=== PATIENT | female | born 1955 | race Caucasian/White ===

== ENCOUNTER 2016-11-12 07:11 | Emergency (ER) | payer OTHER ==
[~2016-11-12] VITALS: Wt 68.0 kg
[~2016-11-12 07:11] MED LIST: ARIP5TAB7 PO; BUPR100T6 PO; CEPH-443 PO; IBUP-1542 PO; LORA-401 PO; MAG355OR14 PO; ONDA4TAB8 PO; TRAZ100T15 PO; ZOLP5TAB PO
[2016-11-12 07:16] VITALS: Wt 68.0 kg
--- NOTE | 2016-11-12 07:44 | ERD ---
ER Documentation Chief Complaint Date/Time DATE: 11/12/16 TIME: 07:42 Chief Complaint fall 3 days ago . pain to lower back. no neuro deficit HPI 61 year old female tripped and fell 3 days ago and fell onto her right side and is now coplaining of right rib pain. Pain is localized, worse with movement, and better at rest, described at rest. No fever, cough. She denies abdominal pain. ROS All systems reviewed and are negative except as per history of present illness. Medications Home Meds Active Scripts Tramadol HCl (Tramadol HCl) 50 Mg Tablet, 50 MG PO Q4 Y for PAIN, #15 TAB Prov:TAWANNA PIERRE PA-C 11/12/16 Ibuprofen* (Ibuprofen*) 600 Mg Tablet, 600 MG PO Q8 for PAIN AND/OR INFLAMMATION , #30 TAB Prov:MEGHAN GROVER MD 07/30/16 Ondansetron Hcl* (Zofran*) 4 Mg Tablet, 4 MG PO Q8H Y for NAUSEA AND/OR VOMITING , #30 TAB Prov:MEGHAN GROVER MD 07/30/16 Mag Hydrox/Al Hydrox/Simeth (Maalox Advanced Suspension) 355 Ml Oral.susp, 2 TSP PO TID, #24 OZ Prov:MEGHAN GROVER MD 07/30/16 Cephalexin* (Keflex*) 500 Mg Capsule, 500 MG PO TID for 5 Days, CAP Prov:MEGHAN GROVER MD 07/30/16 Reported Medications Zolpidem Tartrate* (Ambien*) 5 Mg Tablet, 5 MG PO HS Y for INSOMNIA, TAB 08/06/15 Trazodone Hcl* (Trazodone Hcl*) 100 Mg Tablet, 100 MG PO HS 10/23/11 Lorazepam* (Ativan*) 1 Mg Tablet, 1 MG PO BID 10/01/11 Aripiprazole* (Abilify*) 5 Mg Tab, 2.5 MG PO DAILY 10/01/11 Bupropion Hcl* (Wellbutrin*) 100 Mg Tablet, 200 MG PO DAILY 10/01/11 Allergies Allergies: Coded Allergies: No Known Allergy (Unverified , 11/12/16) PMhx/Soc History of Surgery: Yes (KIDNEY STONES, CHOLECYSTECTOMY) Anesthesia Reaction: No Hx Neurological Disorder: No Hx Respiratory Disorders: No Hx Cardiac Disorders: Yes (ANGINA) Hx Psychiatric Problems: No Hx Miscellaneous Medical Probl: Yes (diverticulitis) Hx Alcohol Use: No Hx Substance Use: No Hx Tobacco Use: No Smoking Status: Never smoker Physical Exam Vitals Vital Signs Date Time Temp Pulse Resp B/P Pulse Ox O2 Delivery O2 Flow Rate FiO2 11/12/16 08:39 98.4 73 19 132/77 100 Room Air 11/12/16 07:16 97.9 58 21 111/67 97 Physical Exam General: Well-developed, well-nourished. The patient appears in no acute distress. HEENT: Head is normocephalic, atraumatic. No scleral icterus. Neck: Supple. Nontender. Lungs: Clear to auscultation. Normal air movement. Chest: tender of right lower #7, no crepitus Heart: Regular rate and rhythm. S1 and S2 are normal. No murmurs, gallops, or rubs. Abdomen: Soft, nontender, nondistended. Bowel sounds are normoactive. No RUQ tenderness Extremities: No clubbing or cyanosis. Normal pulses. Moving extremities x 4. No weakness. Neurologic: Alert and oriented 3. No focal deficits. Skin: Normal turgor. No rash or lesions. Results 24 hrs Current Medications Medications (Trade) Dose Ordered Sig/Jackie Route PRN Reason Start Time Stop Time Status Last Admin Dose Admin Tramadol HCl (Ultram) 50 mg ONCE ONCE PO 11/12/16 08:00 11/12/16 08:01 DC 11/12/16 07:50 PROCEDURE: XR Chest. CLINICAL INDICATION: Fall. Right rib pain. TECHNIQUE: Single frontal chest x-ray. COMPARISON: None. FINDINGS: The lungs are clear of acute infiltrates, edema, effusions, or masses.. The cardiomediastinal silhouette is unremarkable. The osseous structures are intact. IMPRESSION: No acute cardiopulmonary disease. RPTAT: GG .Kevin Mcclendon MD, Date Time Electronically viewed and signed by .Kevin Mcclendon MD, on 11/12/2016 08:22 .L/ Procedures/MDM ER COURSE: Patient was given tramadol for pain. MDM: 60-year-old female presents with a traumatic fall, complaining of right rib pain. The patient has tenderness over the rib, consistent with a contusion. There is no evidence of a pneumothorax, hemopneumothorax, no evidence of shortness of breath and no signs of acute hepatobiliary process. She was asking for Grant at this time, she states that her primary care physician usually writes this and I have asked her to follow-up with her PCP given that narcotic prescription should be written by one provider. I did offer her tramadol as a prescription but the patient refused. Departure Diagnosis: Primary Impression: Fall Additional Impression: Contusion of rib on right side Condition: TAWANNA Sánchez PA-C Nov 12, 2016 07:44
[2016-11-12] MEDS ORDERED: traMADol 50 MG TAB PO ONE (08:00)
--- NOTE | 2016-11-12 08:23 | RADRPT ---
PROCEDURE: XR Chest. CLINICAL INDICATION: Fall. Right rib pain. TECHNIQUE: Single frontal chest x-ray. COMPARISON: None. FINDINGS: The lungs are clear of acute infiltrates, edema, effusions, or masses.. The cardiomediastinal silho uette is unremarkable. The osseous structures are intact. IMPRESSION: No acute cardiopulmonary disease. RPTAT: GG .Kevin Mcclendon MD, MD Date Time Electronically viewed and signed by .Kevin Mcclendon MD, MD on 11/12/2016 08:22 .L/
[2016-11-12] MEDS ORDERED: TRAM50TA2 PO (08:27)
[2016-11-12 08:39] VITALS: BP 132/77; PULSE 73; RESP 19; TEMP 98.4
== END 2016-11-12 08:40 | disposition home or self-care (01) ==
LOC: FTE 07:11
DX: S20.211A Contusion of right front wall of thorax, initial encounter (principal); W01.0XXA Fall on same level from slipping, tripping and stumbling without subsequent striking against object, initial encounter; Y92.9 Unspecified place or not applicable
CPT/HCPCS: 71010; Z7502; Z7610

== ENCOUNTER 2016-11-28 03:43 | Emergency (ER) | payer OTHER ==
[~2016-11-28] VITALS: Ht 152.4 cm; Wt 71.6 kg
[~2016-11-28 03:43] MED LIST changes: +TRAM50TA2 PO
[2016-11-28 03:48] VITALS: Ht 152.4 cm; Wt 71.6 kg
--- NOTE | 2016-11-28 04:34 | ERA ---
ER Documentation Chief Complaint Date/Time DATE: 11/28/16 TIME: 04:33 Chief Complaint lower abd pain since yeterday and worsening HPI The patient is a 61-year-old female, presenting to the ER because of left lower abdominal pain that began about 8 PM last night, 04/29, no aggravating or relieving factor. She has similar symptoms previously, denies fever, chills, neck pain, chest pain, dyspnea, dysuria, diarrhea, constipation. She does not smoke, drink Past medical history: History of kidney stone, depression Past surgical history: Cholecystectomy, appendectomy ROS All systems reviewed and are negative except as per history of present illness. Medications Home Meds Active Scripts Tramadol HCl (Tramadol HCl) 50 Mg Tablet, 50 MG PO Q6 Y for PAIN, #20 TAB Prov:ALEXEI ALMONTE MD 11/28/16 Tramadol HCl (Tramadol HCl) 50 Mg Tablet, 50 MG PO Q4 Y for PAIN, #15 TAB Prov:TAWANNA PIERRE PA-C 11/12/16 Ibuprofen* (Ibuprofen*) 600 Mg Tablet, 600 MG PO Q8 for PAIN AND/OR INFLAMMATION , #30 TAB Prov:MEGHAN GROVER MD 07/30/16 Ondansetron Hcl* (Zofran*) 4 Mg Tablet, 4 MG PO Q8H Y for NAUSEA AND/OR VOMITING , #30 TAB Prov:MEGHAN GROVER MD 07/30/16 Mag Hydrox/Al Hydrox/Simeth (Maalox Advanced Suspension) 355 Ml Oral.susp, 2 TSP PO TID, #24 OZ Prov:MEGHAN GROVER MD 07/30/16 Cephalexin* (Keflex*) 500 Mg Capsule, 500 MG PO TID for 5 Days, CAP Prov:MEGHAN GROVER MD 07/30/16 Reported Medications Zolpidem Tartrate* (Ambien*) 5 Mg Tablet, 5 MG PO HS Y for INSOMNIA, TAB 08/06/15 Trazodone Hcl* (Trazodone Hcl*) 100 Mg Tablet, 100 MG PO HS 10/23/11 Lorazepam* (Ativan*) 1 Mg Tablet, 1 MG PO BID 10/01/11 Aripiprazole* (Abilify*) 5 Mg Tab, 2.5 MG PO DAILY 10/01/11 Bupropion Hcl* (Wellbutrin*) 100 Mg Tablet, 200 MG PO DAILY 10/01/11 Allergies Allergies: Coded Allergies: No Known Allergy (Unverified , 11/12/16) PMhx/Soc History of Surgery: Yes (KIDNEY STONES, CHOLECYSTECTOMY) Anesthesia Reaction: No Hx Neurological Disorder: No Hx Respiratory Disorders: No Hx Cardiac Disorders: Yes (ANGINA) Hx Psychiatric Problems: No Hx Miscellaneous Medical Probl: Yes (diverticulitis) Hx Alcohol Use: No Hx Substance Use: No Hx Tobacco Use: No Physical Exam Vitals Vital Signs Date Time Temp Pulse Resp B/P Pulse Ox O2 Delivery O2 Flow Rate FiO2 11/28/16 03:48 97.7 61 20 136/71 97 Physical Exam Const: No acute distress. Head: Atraumatic. Eyes: Normal Conjunctiva. ENT: Normal External Ears, Nose and Mouth. Neck: Full range of motion. No meningismus. Resp: Clear to auscultation bilaterally. Cardio: Regular rate and rhythm, no murmurs. Abd: Soft, non distended, normal bowel sounds, mild left lower quadrant tenderness, no rigidity, rebound, CVA tenderness. Skin: No petechiae or rashes. Back: No midline or flank tenderness. Ext: No cyanosis, or edema. Neur: Awake and alert. No focal deficit Psych: Normal Mood and Affect. Results 24 hrs Laboratory Tests Test 11/28/16 05:32 Bedside Urine Blood 2+ Bedside Urine Glucose (UA) Negative Bedside Urine Ketones (LAB) Negative Bedside Urine Leukocyte Esterase (L Negative Bedside Urine Nitrite (LAB) Negative Bedside Urine Protein (LAB) Negative Bedside Urine pH (LAB) 7.0 Current Medications Medications (Trade) Dose Ordered Sig/Jackie Route PRN Reason Start Time Stop Time Status Last Admin Dose Admin Morphine Sulfate (morphine) 2 mg ONCE STAT IV 11/28/16 04:39 11/28/16 04:40 Cancel Ondansetron HCl (Zofran Inj) 4 mg ONCE STAT IV 11/28/16 04:39 11/28/16 04:40 Cancel Acetaminophen/ Hydrocodone Bitart ([place] (10/325)) 1 tab ONCE ONCE PO 11/28/16 06:00 11/28/16 06:01 DC Ondansetron HCl (Zofran Odt) 4 mg ONCE STAT ODT 11/28/16 05:42 11/28/16 05:43 DC 11/28/16 05:54 Procedures/MDM MEDICAL MAKING DECISION: The patient is a 60-year-old female, presenting with acute abdominal pain of unclear etiology, most likely due to diverticulosis. She was treated with [place] for pain and Zofran ODT for nausea with good response The differential diagnoses considered include but are not limited to cholelithiasis, cholecystitis, cystitis, pancreatitis, hepatitis, gastritis, peptic ulcer disease, gastric ulcer, appendicitis, diverticulitis, cholangitis, choledocholithiasis, partial small bowel obstruction. Departure Diagnosis: Primary Impression: Abdominal pain Additional Impression: Diverticulosis Condition: Good Comments She was discharged with [facility] I discussed the findings with the patient. I advised the patient to follow-up with the primary physician in about 1-2 days, sooner if needed and return if any concern. ALEXEI ALMONTE MD Nov 28, 2016 04:34
[2016-11-28] MEDS ORDERED: ONDANSETRON 4 MG INJ IV STA (04:39)
[2016-11-28] MEDS ORDERED: morphine 2 MG INJ IV STA (04:39)
--- NOTE | 2016-11-28 05:14 | RADRPT ---
PROCEDURE: CT ABDOMEN/PELVIS WITHOUT CONTRAST CLINICAL INDICATION: 61-year-old female with abdominal pain. TECHNIQUE: The study was performed utilizing a GE [employer] VCT 64-slice CT scanner. Direct axia l sections were obtained through the abdomen and pelvis without the use of intravenous contrast mate rial. Sagittal and coronal reformations were obtained. Automated exposure control and iterative sushma nstruction techniques were utilized for this examination. The [facility]. CTD/vol = 16.2 mGy; Total Exam DLP = 836.5 mGy-cm. COMPARISON: CT abdomen/pelvis August 06, 2015. FINDINGS: The lung bases are unremarkable. There is no evidence for significant pleural effusion. The liver has a normal size and contour. There is diffuse decreased density throughout the liver consistent w ith fatty infiltration without focal areas of abnormal density. No intrahepatic nor extrahepatic joyce iary ductal dilatation is seen. Surgical clips are seen within the gallbladder fossa from prior chol ecystectomy. The pancreas is without areas of abnormal attenuation. The spleen is identified and mirza s a normal size without abnormal density. The adrenal glands are unremarkable. There are innumerable bilateral small nonobstructing renal calculi somewhat more prominently on the left side. Bilateral extrarenal pelves are noted without evidence for robert obstructive uropathy. The urinary bladder co ntains urine. There is fecalization of the distal small bowel with mild retained stool without evide nce for bowel obstruction. There are a few small diverticula within the sigmoid colon region without surrounding inflammatory changes. The appendix is not visualized however there are no peria ppendiceal inflammatory changes. The uterus is unremarkable. Phleboliths are identified within the pelvis. There is no significant free fluid. The aortoiliac vessels are without aneurysmal dilatat ion. Degenerative changes are present within the spine. There is a Schmorl's node involving the sup erior endplate of the L1 vertebral body with mild chronic depression of the endplate approximately 2 0% without significant interval change. There is discogenic disease with a vacuum disk identified a t L5-S1 with anterolisthesis of approximately 15% with diffuse disk bulge and facet arthropathy resu lting in severe bilateral foraminal stenosis and severe central spinal stenosis. IMPRESSION: 1. Diffuse fatty infiltration of the liver. 2. Status post cholecystectomy. 3. Multiple bilateral nonobstructing renal calculi. 4. Sigmoid diverticulosis. 5. Fecalization of the small bowel with mild retained stool without evidence for obstruction. 6. Degenerative changes within the spine with L5-S1 degenerative spondylolisthesis (15%) with sever e bilateral foraminal and central spinal stenosis. .Chidi Fitzgerald MD, Date Time Electronically viewed and signed by .Chidi Fitzgerald MD, on 11/28/2016 05:14 .Zachery/
[2016-11-28 05:28] LABS: URINE BLOOD (Dip) POC 2+ (NEGATIVE)
[2016-11-28] MEDS ORDERED: ONDANSETRON (ODT) 4 MG TAB ODT STA (05:42)
[2016-11-28] MEDS ORDERED: HYDROCODONE/APAP (10/325) TAB PO ONE (06:00)
[2016-11-28] MEDS ORDERED: TRAM50TA2 PO (06:03)
== END 2016-11-28 09:24 | disposition home or self-care (01) ==
LOC: E/R 03:43
DX: R10.32 Left lower quadrant pain (principal); R40.2252 Coma scale, best verbal response, oriented, at arrival to emergency department; K57.90 Diverticulosis of intestine, part unspecified, without perforation or abscess without bleeding; R40.2142 Coma scale, eyes open, spontaneous, at arrival to emergency department; R40.2362 Coma scale, best motor response, obeys commands, at arrival to emergency department
CPT/HCPCS: 74176; 81003; Z7502; Z7610

== ENCOUNTER 2017-09-16 03:52 | Emergency (ER) | payer OTHER ==
[~2017-09-16] VITALS: Ht 160 cm; Wt 82.3 kg
[2017-09-16 03:59] VITALS: Ht 160 cm; Wt 82.3 kg
[2017-09-16] MEDS ORDERED: morphine 4 MG/ML VIAL IV STA (05:02)
[2017-09-16] MEDS ORDERED: SOD CHLORIDE 0.9% 250 ML IV STA (05:02)
[2017-09-16] MEDS ORDERED: KETOROLAC 15 MG INJ IV STA (05:02)
[2017-09-16] MEDS ORDERED: ONDANSETRON 4 MG INJ IV STA (05:02)
[2017-09-16 05:13] LABS: URINE BLOOD (Dip) POC 1+ (NEGATIVE)
[2017-09-16 05:15] VITALS: TEMP 98.2
--- NOTE | 2017-09-16 05:22 | ERD ---
ER Documentation Chief Complaint Chief Complaint Lt flank pain x4days. hx kidney stones. Denies urinary symptoms. HPI This is a 62-year-old female with a history of multiple kidney stones in the past that have required lithotripsy who presents to the emergency room with approximately 3 days of left flank pain radiating to the lower abdomen. She states this is very similar in nature to prior kidney stones. It is sharp, the pain is 5 out of 10. She denies any hematuria dysuria urgency or frequency. No fevers or chills chest pain or shortness of breath. ROS All systems reviewed and are negative except as per history of present illness. Medications Home Meds Active Scripts Tamsulosin Hcl* (Flomax*) 0.4 Mg Cap.er.24h, 0.4 MG PO QPM, #10 CAP Prov:ROGELIO RODRIGUEZ MD 09/16/17 Hydrocodone/Acetaminophen ([place] 10-325 Tablet) 1 Each Tablet, 1 TAB PO Q6H Y for PAIN, #7 TAB Prov:ROGELIO RODRIGUEZ MD 09/16/17 Ibuprofen* (Motrin*) 800 Mg Tab, 800 MG PO Q6H Y for PAIN AND OR ELEVATED TEMP, #30 TAB Prov:ROGELIO RODRIGUEZ MD 09/16/17 Ibuprofen* (Ibuprofen*) 600 Mg Tablet, 600 MG PO Q8 for PAIN AND/OR INFLAMMATION , #30 TAB Prov:MEGHAN GROVER MD 07/30/16 Reported Medications Zolpidem Tartrate* (Ambien*) 5 Mg Tablet, 5 MG PO HS Y for INSOMNIA, TAB 08/06/15 Lorazepam* (Ativan*) 1 Mg Tablet, 1 MG PO DAILY 10/01/11 Aripiprazole* (Abilify*) 5 Mg Tab, 2.5 MG PO DAILY 10/01/11 Bupropion Hcl* (Wellbutrin*) 100 Mg Tablet, 200 MG PO DAILY 10/01/11 Discontinued Reported Medications Trazodone Hcl* (Trazodone Hcl*) 100 Mg Tablet, 100 MG PO HS 10/23/11 Discontinued Scripts Tramadol HCl (Tramadol HCl) 50 Mg Tablet, 50 MG PO Q6 Y for PAIN, #20 TAB Prov:ALEXEI ALMONTE MD 11/28/16 Tramadol HCl (Tramadol HCl) 50 Mg Tablet, 50 MG PO Q4 Y for PAIN, #15 TAB Prov:TAWANNA PIERRE PA-C 11/12/16 Ondansetron Hcl* (Zofran*) 4 Mg Tablet, 4 MG PO Q8H Y for NAUSEA AND/OR VOMITING , #30 TAB Prov:MEGHAN GROVER MD 07/30/16 Mag Hydrox/Al Hydrox/Simeth (Maalox Advanced Suspension) 355 Ml Oral.susp, 2 TSP PO TID, #24 OZ Prov:MEGHAN GROVER MD 07/30/16 Cephalexin* (Keflex*) 500 Mg Capsule, 500 MG PO TID for 5 Days, CAP Prov:MEGHAN GROVER MD 07/30/16 Allergies Allergies: Coded Allergies: No Known Allergy (Unverified , 11/12/16) PMhx/Soc History of Surgery: Yes (KIDNEY STONES, CHOLECYSTECTOMY) Anesthesia Reaction: No Hx Neurological Disorder: No Hx Respiratory Disorders: No Hx Cardiac Disorders: Yes (ANGINA) Hx Psychiatric Problems: Yes (depression) Hx Miscellaneous Medical Probl: Yes (diverticulitis) Hx Alcohol Use: No Hx Substance Use: No Hx Tobacco Use: No FmHx Family History: No diabetes Physical Exam Vitals Vital Signs Date Time Temp Pulse Resp B/P Pulse Ox O2 Delivery O2 Flow Rate FiO2 09/16/17 05:15 98.2 67 18 99/65 98 Room Air Nasal Cannula 09/16/17 03:59 98.2 70 18 117/62 97 Physical Exam General: Well developed, well nourished, no acute distress Head: Normocephalic, atraumatic. Eyes: Pupils equally reactive, EOM intact ENT: Moist mucous membranes Neck: Supple, no lymphadenopathy Respiratory: Lungs clear bilaterally, no distress Cardiovascular: RRR, no murmurs, rubs, or gallops Abdominal: Soft, non-tender, non-distended, no peritoneal signs Back: No CVA tenderness : Deferred MSK: No edema, no unilateral swelling, 5/5 strength Neurologic: Alert and oriented, moving all extremities, normal speech, no focal weakness, no cerebellar signs Skin: No rash Psych: Normal mood Results 24 hrs Laboratory Tests Test 09/16/17 05:13 09/16/17 05:20 Bedside Urine pH (LAB) 6.0 Bedside Urine Protein (LAB) Negative Bedside Urine Glucose (UA) Negative Bedside Urine Ketones (LAB) Negative Bedside Urine Blood 1+ Bedside Urine Nitrite (LAB) Negative Bedside Urine Leukocyte Esterase (L Trace White Blood Count Pending Red Blood Count Pending Hemoglobin Pending Hematocrit Pending Mean Corpuscular Volume Pending Mean Corpuscular Hemoglobin Pending Mean Corpuscular Hemoglobin Concent Pending Red Cell Distribution Width Pending Platelet Count Pending Mean Platelet Volume Pending Current Medications Medications (Trade) Dose Ordered Sig/Jackie Route PRN Reason Start Time Stop Time Status Last Admin Dose Admin Sodium Chloride (NS) 250 ml @ 250 mls/hr Q1H STAT IV 09/16/17 05:02 09/16/17 06:01 DC 09/16/17 05:31 Morphine Sulfate (morphine) 4 mg ONCE STAT IV 09/16/17 05:02 09/16/17 05:03 DC 09/16/17 05:31 Ondansetron HCl (Zofran Inj) 4 mg ONCE STAT IV 09/16/17 05:02 09/16/17 05:03 DC 09/16/17 05:31 Ketorolac Tromethamine (Toradol) 15 mg ONCE STAT IV 09/16/17 05:02 09/16/17 05:03 DC 09/16/17 05:31 Procedures/MDM LAB INTERPRETATION: Pending MEDICAL DECISION MAKING: The patient has a history of kidney stones. Her presentation is very consistent with ureteral colic. The patient has pain well controlled without evidence of alternative diagnosis. For this reason I do not believe that repeat CT imaging is necessary. I believe that if we can control the patient's pain and she has no evidence of infection or acute renal insufficiency I believe outpatient follow-up with urology would be most appropriate. The patient is agreeable. No signs of acute aortic process or alternative acute intra-abdominal process. ER COURSE: Patient was given IV fluids, pain control medication. The patient's pain is improved. If laboratory testing is negative outpatient management would be appropriate. Patient endorsed oncoming provider I kept the patient and/or family informed of laboratory and diagnostic imaging results throughout the emergency room course. DISPOSITION PLAN: Pending laboratory testing We discussed follow up with the patient's primary care doctor within 24 to 48 hours as needed. We also discussed return to the emergency room for worsening symptoms or worsening condition. Outpatient referral: [None required] Discharge Medications: [place], Zofran, Flomax, Motrin Departure Diagnosis: Primary Impression: Ureterolithiasis Additional Impression: Renal colic on left side Condition: Stable ROGELIO RODRIGUEZ MD Sep 16, 2017 05:22
[2017-09-16] MEDS ORDERED: IBUP800T25 PO (05:50)
[2017-09-16] MEDS ORDERED: TAMS-14 PO (05:50)
[2017-09-16] MEDS ORDERED: HYDR-902 PO (05:50)
[2017-09-16 05:57] LABS: BASOPHIL # 0.1 10^3/ul (0.0-0.1); BASOPHILS % 0.7 % (0.0-2.0); EOSINOPHILS # 0.2 10^3/ul (0.0-0.5); EOSINOPHILS % 2.5 % (0.0-7.0); HEMATOCRIT 37.1 % (37.0-47.0); HEMOGLOBIN 12.6 g/dl (12.0-16.0); LYMPHOCYTES # 2.5 10^3/ul (0.8-2.9); LYMPHOCYTES % 28.2 % (15.0-51.0); MEAN CORPUSCULAR HEMOGLOBIN 31.4 pg (29.0-33.0); MEAN CORPUSCULAR VOLUME 92.5 fl (82.0-101.0); MEAN PLATELET VOLUME 9.6 fl (7.4-10.4); MONOCYTES % 11.1 % (0.0-11.0); NEUTROPHIL # 5.1 10^3/ul (1.6-7.5); NEUTROPHILS % 57.1 % (39.0-77.0); PLATELET COUNT 288 10^3/UL (140-415); RED BLOOD COUNT 4.01 10^6/ul (4.20-5.40); RED CELL DISTRIBUTION WIDTH 12.7 % (11.5-14.5); WHITE BLOOD COUNT 8.9 10^3/ul (4.8-10.8)
[2017-09-16 06:25] VITALS: BP 104/65; PULSE 67; RESP 17
[2017-09-16 06:26] LABS: CREATININE 0.7 mg/dl (0.44-1.00); POTASSIUM 3.9 mmol/L (3.5-5.1)
[2017-09-16 06:41] LABS: ADD UMIC YES; UR ASCORBIC ACID NEGATIVE (NEGATIVE); UR BILIRUBIN (Dip) NEGATIVE (NEGATIVE); UR BLOOD (Dip) 1+ mg/dL (NEGATIVE); UR CLARITY CLEAR (CLEAR); UR COLOR YELLOW (YELLOW); UR GLUCOSE (Dip) NEGATIVE (NEGATIVE); UR KETONES (Dip) NEGATIVE (NEGATIVE); UR LEUKOCYTE ESTERASE (Dip) NEGATIVE Leu/ul (NEGATIVE); UR NITRITE (Dip) NEGATIVE (NEGATIVE); UR RBC 3 /HPF (0-5); UR SPECIFIC GRAVITY (Dip) 1.011 (1.003-1.030); UR TOTAL PROTEIN (Dip) NEGATIVE (NEGATIVE); UR UROBILINOGEN (Dip) NEGATIVE (NEGATIVE)
[2017-09-16] MEDS ORDERED: HYDROCODONE/APAP (5/325) TAB PO ONE (07:00)
== END 2017-09-16 07:52 | disposition home or self-care (01) ==
LOC: E/R 03:52
DX: N20.1 Calculus of ureter (principal)
CPT/HCPCS: 36415; 80048; 81001; 85025; 87086; 96374; 96375; J1885; J2270; J2405; J7040; Z7502; 81003

== ENCOUNTER 2018-01-07 22:45 | Emergency (ER) | END 2018-01-08 01:24 | disposition home or self-care (01) ==

== ENCOUNTER 2018-01-16 07:34 | Emergency (ER) | END 2018-01-16 09:57 | disposition home or self-care (01) ==

== ENCOUNTER 2018-03-11 14:29 | Emergency (ER) | END 2018-03-11 17:39 | disposition home or self-care (01) ==

== ENCOUNTER 2018-03-14 15:45 | Emergency (ER) | END 2018-03-14 18:05 | disposition home or self-care (01) ==

== ENCOUNTER 2018-04-09 22:17 | Emergency (ER) | END 2018-04-10 04:04 | disposition home or self-care (01) ==

== ENCOUNTER 2018-05-12 03:21 | Emergency (ER) | END 2018-05-12 04:19 | disposition home or self-care (01) ==

== ENCOUNTER 2019-01-20 12:25 | Inpatient (IN) | payer OTHER ==
[2019-01-20] VITALS (19 sets, daily range): BP systolic 94–149; BP diastolic 44–86; PULSE 60–74; RESP 13–20; Ht 147.3 cm; Wt 66.2 kg
[~2019-01-20] VITALS: Ht 147.3 cm; Wt 66.2 kg
[~2019-01-20 12:25] MED LIST changes: +ARIP5TAB14 PO; -ARIP5TAB7 PO; +HYDR-3980 PO; +HYDR-4011 PO; +IBUP800T48 PO; -MAG355OR14 PO; +NAPR-688 PO; +OXYC-279 PO; +SULF1TAB31 PO; +TAMS-14 PO; +TRAM50TA PO; -TRAM50TA2 PO; -TRAZ100T15 PO
[2019-01-20] MEDS ORDERED: PROP40TA4 PO (12:54)
[2019-01-20] MEDS ORDERED: BUPR-75 PO (12:55)
[2019-01-20] MEDS ORDERED: HYDR-3609 PO (12:57)
[2019-01-20] MEDS ORDERED: THROMBIN (BOVINE) 5,000 UNIT VIAL TP ONE (15:18)
[2019-01-20] MEDS ORDERED: GELATIN SIZE 100 SPONGE ONE (15:18)
[2019-01-20] MEDS ORDERED: LIDOCAINE 1%/EPI (1:100,000) (MDV) 20 ML ONE (15:18)
[2019-01-20] MEDS ORDERED: POLYMYXIN/BACITRACIN 1L IRRIG ONE (15:18)
[2019-01-20] MEDS ORDERED: LIDOCAINE 1% (MPF) 30 ML INJ ONE (15:19)
[2019-01-20] MEDS ORDERED: morphine 4 MG/ML VIAL IV STA (16:33)
--- NOTE | 2019-01-20 16:35 | PREAC ---
Date/Time of Note Date/Time of Note DATE: 01/20/19 TIME: 16:34 Anesthesia Eval and Record Evaluation Time Pre-Procedure Interview DATE: 01/20/19 TIME: 16:34 Age 63 Sex female NPO: 8 hrs Preoperative diagnosis pain due to spinal cord stimulator Planned procedure removal of spinal cord stimulator Past Medical History Past Medical History: Includes Neuro: Other (tremor, urinary incontinence) Psych: Depression, Other (chronic pain) Surgery & Anesthesia Issues No known issue Meds Anticoagulation: No Beta Isis within 24 hr: Yes Reason Beta Isis not given: Bradycarida, Hypotension Reported Medications Hydrocodone/Acetaminophen (Hydrocodone-Acetamin 10-325 mg) 1 Each Tablet, 1 EACH PO Q6 PRN for PAIN, TAB 01/20/19 Bupropion Hcl* (Wellbutrin XL*) 150 Mg Tab.sr.24h, 150 MG PO DAILY, TAB.SA 01/20/19 Propranolol Hcl* (Propranolol Hcl*) 40 Mg Tablet, 40 MG PO BID, TAB 01/20/19 Discontinued Reported Medications Zolpidem Tartrate* (Ambien*) 5 Mg Tablet, 5 MG PO HS PRN for INSOMNIA, TAB 08/06/15 Lorazepam* (Ativan*) 1 Mg Tablet, 1 MG PO DAILY 10/01/11 Aripiprazole* (Abilify*) 5 Mg Tab, 2.5 MG PO DAILY 10/01/11 Bupropion Hcl* (Wellbutrin*) 100 Mg Tablet, 200 MG PO DAILY 10/01/11 Discontinued Scripts Ibuprofen* (Motrin*) 600 Mg Tab, 600 MG PO Q6H PRN for PAIN AND OR ELEVATED TEMP, #30 TAB Prov:CLAUDIA CARRINGTON DRAPERY AND UPHOLSTERY MEASURER 05/12/18 Cephalexin* (Keflex*) 500 Mg Capsule, 500 MG PO Q8, #9 CAP Prov:SHELLEY WALLER DO 04/10/18 Sulfamethoxazole/Trimethoprim* (Bactrim Ds* Tablet) 1 Each Tablet, 1 TAB PO BID for 5 Days, TAB Prov:SHELLEY WALLER DO 04/10/18 Hydrocodone/Acetaminophen ([place] 5-325 Tablet) 1 Each Tablet, 1 EACH PO Q6 PRN for SEVERE PAIN LEVEL 7-10, #7 TAB Prov:SHELLEY WALLER DO 04/10/18 Naproxen* (Naproxen*) 500 Mg Tablet, 500 MG PO BID PRN for PAIN, #20 TAB Prov:SHELLEY WALLER DO 04/10/18 Tramadol Hcl* (Ultram*) 50 Mg Tablet, 50 MG PO Q6H PRN for PAIN, #10 TAB Prov:ALEXEI ALMONTE MD 03/14/18 Ondansetron Hcl* (Zofran*) 4 Mg Tablet, 4 MG PO Q6H for NAUSEA AND/OR VOMITING, #30 TAB Prov:KARI COYLE C 03/11/18 Oxycodone HCl/Acetaminophen (Percocet 5-325 mg Tablet) 1 Each Tablet, 1 EACH PO Q6, #15 TAB Prov:LEONIDESKARI C 03/11/18 Hydrocodone/Acetaminophen ([place] 10-325 Tablet) 1 Each Tablet, 1 TAB PO Q6H PRN for PAIN, #7 TAB Prov:ANÍBAL GARDNER PA-C 01/16/18 Hydrocodone/Acetaminophen ([place] 5-325 Tablet) 1 Each Tablet, 1 TAB PO Q6H PRN for PAIN, #7 TAB Prov:ALEXEI ALMONTE MD 01/08/18 Tamsulosin Hcl* (Flomax*) 0.4 Mg Cap.er.24h, 0.4 MG PO QPM, #10 CAP Prov:ROGELIO RODRIGUEZ MD 09/16/17 Hydrocodone/Acetaminophen ([place] 10-325 Tablet) 1 Each Tablet, 1 TAB PO Q6H PRN for PAIN, #7 TAB Prov:ROGELIO RODRIGUEZ MD 09/16/17 Ibuprofen* (Motrin*) 800 Mg Tab, 800 MG PO Q6H PRN for PAIN AND OR ELEVATED TEMP, #30 TAB Prov:ROGELIO RODRIGUEZ MD 09/16/17 Ibuprofen* (Ibuprofen*) 600 Mg Tablet, 600 MG PO Q8 for PAIN AND/OR INFLAMMATION, #30 TAB Prov:MEGHAN GROVER MD 07/30/16 Meds reviewed: Yes Allergies Coded Allergies: No Known Allergy (Unverified , 01/20/19) Allergies Reviewed: Yes Labs/Studies Labs Reviewed: Reviewed by anesthesiologist Blood Bank Test 01/20/19 13:40 Antibody Screen NEGATIVE Blood Type A POSITIVE test: N/A Studies: ECG, CXR Pre-procedure Exam Last vitals Vital Signs Date Temp Pulse Resp B/P (MAP) Pulse Ox O2 O2 Flow FiO2 Time Delivery Rate 01/20/19 98.9 62 16 149/69 96 Room Air 13:50 (95) Airway: Adequate mouth opening, Adequate thyromental dist Mallampati: Mallampati II Teeth: Normal Lung: Normal Heart: Normal ASA Physical Status ASA physical status: 2 Emergency: None Planned Anesthetic General/MAC: ETT Planned Pain Management Parenteral pain med Pre-operative Attestations Prior to commencing anesthesia and surgery, the patient was re-evaluated, there was verification of: *The patient's identity *The results of appropriate recent lab work and preoperative vital signs *The above evaluation not changing prior to induction *Anesthetic plan, risk benefits, alternative and complications discussed with patient/family; questions answered; patient/family understands, accepts and wishes to proceed. CAPRI CHANG MD January 20, 2019 16:35
[2019-01-20] MEDS ORDERED: SUCCINYLCHOLINE CHLORIDE 100 MG/5 ML SYG IV ONE (16:58)
[2019-01-20] MEDS ORDERED: LIDOCAINE 2% (SDV) 5 ML INJ ONE (16:58)
[2019-01-20] MEDS ORDERED: PROPOFOL 20 ML ONE (16:58)
[2019-01-20] MEDS ORDERED: MIDAZOLAM 1 MG/ML 2 ML INJ ONE (16:59)
[2019-01-20] MEDS ORDERED: morphine 2 MG INJ IV ONE (17:00)
--- NOTE | 2019-01-20 17:15 | HPN ---
Date/Time of Note Date/Time of Note DATE: 01/20/19 TIME: 17:14 Interval H&P Admission Note Pt. seen H&P reviewed: No system changes Neurosurgery Update Note Patient seen and examined All risk/complications 3-5%overall as preprinted in my office consent form thoroughly discussed. All questions answered and no guarantees given. SHEILA AARON MD January 20, 2019 17:15
[2019-01-20] MEDS ORDERED: ROCURONIUM 50 MG INJ ONE (17:16)
[2019-01-20] MEDS ORDERED: CEFAZOLIN 1 GM INJ ONE (17:16)
[2019-01-20] MEDS ORDERED: EPHEDrine 25 MG/5 ML SYG ONE (17:16)
[2019-01-20] MEDS ORDERED: FAMOTIDINE 20 MG INJ ONE (17:18)
[2019-01-20] MEDS ORDERED: DEXAMETHASONE 4 MG/ML 5 ML INJ ONE (17:18)
[2019-01-20] MEDS ORDERED: ONDANSETRON 4 MG INJ ONE (17:18)
[2019-01-20] MEDS ORDERED: NEOSTIGMINE 3 MG/3 ML SYRINGE ONE (17:32)
[2019-01-20] MEDS ORDERED: GLYCOPYRROLATE 0.4 MG INJ ONE (17:32)
[2019-01-20] MEDS ORDERED: SUGAMMADEX SODIUM 200 MG/2 ML VIAL IV ONE (17:37)
[2019-01-20] MEDS ORDERED: FENTAnyl 50 MCG/ML VIAL ONE (17:46)
[2019-01-20] MEDS: CEFAZOLIN 1 GM/50 ML (PMX) 50 ML IVPB SCH ×2 (18:00→23:23)
[2019-01-20] MEDS ORDERED: ACETAMINOPHEN 325 MG TAB PO PRN ×2 (18:00→21:30)
[2019-01-20] MEDS ORDERED: AL HYDROX/MG HYDROX/SIMETH 30 ML CUP PO PRN (18:00)
[2019-01-20] MEDS ORDERED: NACL 0.9% 3 ML SYG IV SCH (18:00)
[2019-01-20] MEDS ORDERED: NALOXONE (0.4 MG/ML) INJ IV PRN (18:00)
--- NOTE | 2019-01-20 18:09 | OPPN ---
Date/Time of Note Date/Time of Note DATE: 01/20/19 TIME: 18:08 Operative Report Preoperative Diagnosis Pain Stimulator Placement Postoperative Diagnosis Same Operation/Procedure Performed Sheila Malcolm MD Surgeon see signature line assisted sales representative CYNDEE Dominguez, ACNP- Anesthesia: general Estimated blood loss: 10 - 50 ml's Transfusion Required none Specimen Hardware externalized and sent to Pathology Grafts/Implants none Complications none SHEILA MALCOLM MD January 20, 2019 18:09
--- NOTE | 2019-01-20 18:13 | PAC ---
Date/Time of Note Date/Time of Note DATE: 01/20/19 TIME: 18:11 Post-Anesthesia Notes Post-Anesthesia Note Last documented vital signs Vital Signs Date Temp Pulse Resp B/P (MAP) Pulse Ox O2 O2 Flow FiO2 Time Delivery Rate 01/20/19 98.9 62 16 149/69 96 Room Air 13:50 (95) Activity: WNL Respiratory function: WNL Cardiovascular function: WNL Mental status: Baseline Pain reasonably controlled: Yes Hydration appropriate: Yes Nausea/Vomiting absent: Yes Comments BP: 129/37 HR: 61 RR: 15 T: 97.9 SaO2: 97% CAPRI CHANG MD January 20, 2019 18:13
[2019-01-20] MEDS ORDERED: FENTAnyl 50 MCG/ML VIAL IV PRN ×3 (18:30)
[2019-01-20] MEDS ORDERED: ONDANSETRON 4 MG INJ IV PRN ×2 (18:30→21:30)
[2019-01-20] MEDS ORDERED: MEPERIDINE 25 MG INJ IV PRN (18:30)
[2019-01-20] MEDS ORDERED: DIPHENHYDRAMINE 50 MG INJ IV PRN (18:30)
[2019-01-20] MEDS ORDERED: PROCHLORPERAZINE 10 MG INJ IV PRN (18:30)
[2019-01-20] MEDS ORDERED: HYDROmorphONE 1 MG/5 ML IV SYRINGE IV PRN ×3 (18:30)
[2019-01-20] MEDS: HYDROmorphONE 1 MG/ML SYG IV PRN (21:53)
[2019-01-20] MEDS: DEXTROSE 5%-0.45% NACL 1,000 ML IV SCH (21:53)
[2019-01-20] MEDS: GABAPENTIN 100 MG CAP PO SCH (22:40)
--- NOTE | 2019-01-20 23:58 | HP ---
DATE OF ADMISSION: 01/20/2019 CHIEF COMPLAINT AND HISTORY OF PRESENT ILLNESS: The patient is a 63-year-old female with a history o f chronic sciatica pain, history of depression, history of left ureter and left renal stones status p ost cystoscopy, laser lithotripsy and JJ stent placement several years ago. The patient is also stat us post spinal cord stimulator and was having pain at the site of spinal cord stimulator. The patien t stated that she had a fall. The patient reported that she developed pain at the site of spinal cor d stimulator, therefore, decided to go to PMD and subsequently was seen by Dr. Malcolm as an outpatient for removal of spinal cord stimulator. The patient underwent removal of spinal cord stimulator by Gutierrez Malcolm. Postoperatively, she has significant pain and is being admitted for further evaluation. T he patient denied any chest pain or shortness of breath. The patient does appear anxious and did not have any nausea or vomiting, did not have any abdominal pain, did not have any leg edema. No report ed diabetes or cardiac disease. No reported recent fever or chills. No focal weakness. REVIEW OF SYSTEMS: Rest of review of systems is unremarkable. ALLERGIES: NO KNOWN DRUG ALLERGIES. SOCIAL HISTORY: No smoking or alcohol. FAMILY HISTORY: Noncontributory. PAST SURGICAL HISTORY: The patient is status post appendectomy and cholecystectomy. PHYSICAL EXAMINATION: GENERAL: Revealed the patient to be awake, alert, fairly oriented. VITAL SIGNS: Temperature 97.9, pulse 62, respirations 16, blood pressure 125/67, O2 sat 99% on 2 L n bessy cannula. HEENT: No eye discharge or redness. Conjunctivae and lids normal. Nose and ears normal. Oropharyn x clear. NECK: No mass. CHEST: Fairly clear. CARDIOVASCULAR: S1, S2 normal. No murmur. ABDOMEN: Soft. EXTREMITIES: No edema. Pedal pulses palpable. SKIN: Without acute rash. NEUROLOGIC: The patient is awake, alert, fairly oriented with no obvious gross deficits, although ex am was limited due to recent surgery. LABORATORY DATA: Labs are pending. IMPRESSION: 1. Spinal cord stimulator malfunction, status post removal. 2. Chronic sciatica pain. 3. Anxiety and depression. PLAN: The patient will be admitted on medical floor. The patient will be started on clear liquid di et and will be given gabapentin, Tylenol, [place] and IV Dilaudid for pain control depending upon sever ity. The patient will have SCD for DVT prophylaxis. We will obtain CBC and BMP in the morning. We will continue to follow her from a medical standpoint. Further recommendation will depend on patient 's hospital course and recommendation from Dr. Malcolm. Dictated By: CHELI CRUZ MD AB/NTS Conf#: [id number] DID#: [id number] CC: SHEILA MALCOLM MD;*EndCC*
[2019-01-21] MEDS: HYDROmorphONE 1 MG/ML SYG IV PRN ×3 (03:33→18:50)
[2019-01-21] MEDS: CEFAZOLIN 1 GM/50 ML (PMX) 50 ML IVPB SCH ×2 (05:26→12:08)
[2019-01-21 08:02] VITALS: BP 96/56; PULSE 80; RESP 18
[2019-01-21] MEDS: GABAPENTIN 100 MG CAP PO SCH ×2 (08:11→21:20)
[2019-01-21 11:40] VITALS: BP 99/60; PULSE 74; RESP 18
[2019-01-21] MEDS: HYDROCODONE/APAP (5/325) TAB PO PRN ×2 (12:06→18:43)
--- NOTE | 2019-01-21 12:24 | PN ---
Date/Time of Note Date/Time of Note DATE: 01/21/19 TIME: 12:24 Assessment/Plan VTE Prophylaxis Risk score (from Ns)>0 risk: 8 SCD applied (from Ns): Yes Pharmacological prophylaxis: LMWH Lines/Catheters IV Catheter Type (from Nrsg): Peripheral IV Assessment/Plan Hospital Course 1. Spinal cord stimulator malfunction, status post removal. 2. Chronic sciatica pain. 3. Anxiety and depression. Result Diagram: 01/21/19 0430 01/21/19 0430 Results 24hrs Laboratory Tests Test 01/21/19 04:30 01/21/19 07:17 White Blood Count 11.0 #H Red Blood Count 3.78 L Hemoglobin 11.7 L Hematocrit 36.5 L Mean Corpuscular Volume 96.6 Mean Corpuscular Hemoglobin 31.0 Mean Corpuscular Hemoglobin Concent 32.1 Red Cell Distribution Width 11.9 Platelet Count 361 Mean Platelet Volume 9.7 Immature Granulocytes % 0.500 H Neutrophils % 88.6 H Lymphocytes % 9.0 L Monocytes % 1.7 Eosinophils % 0.0 Basophils % 0.2 Nucleated Red Blood Cells % 0.0 Immature Granulocytes # 0.050 H Neutrophils # 9.8 H Lymphocytes # 1.0 Monocytes # 0.2 L Eosinophils # 0.0 Basophils # 0.0 Nucleated Red Blood Cells # 0.0 Sodium Level 140 Potassium Level 4.1 Chloride Level 105 Carbon Dioxide Level 25 Anion Gap 10 Blood Urea Nitrogen 15 Creatinine 0.55 Est Glomerular Filtrat Rate mL/min > 60 Glucose Level 159 Calcium Level 9.4 Lab Scanned Report REFERENCE LAB Subjective 24 Hr Interval Summary Free Text/Dictation Patient denies any pain Exam/Review of Systems Exam Vitals Vital Signs Date Temp Pulse Resp B/P (MAP) Pulse Ox O2 O2 Flow FiO2 Time Delivery Rate 01/21/19 98.0 74 18 99/60 (73) 94 Room Air 11:40 01/20/19 2.0 19:22 Intake and Output 01/20/19 01/20/19 01/21/19 1515:00 23:00 07:00 IntakeIntake Total 1480 ml 1370 ml OutputOutput Total 910 ml 1200 ml BalanceBalance 570 ml 170 ml Constitutional: well developed Head: normocephalic, atraumatic Neck: supple Cardiovascular: regular rate and rhythm Gastrointestinal: soft, non-tender Extremities: normal pulses Results Results 24hrs Laboratory Tests Test 01/21/19 04:30 01/21/19 07:17 White Blood Count 11.0 #H Red Blood Count 3.78 L Hemoglobin 11.7 L Hematocrit 36.5 L Mean Corpuscular Volume 96.6 Mean Corpuscular Hemoglobin 31.0 Mean Corpuscular Hemoglobin Concent 32.1 Red Cell Distribution Width 11.9 Platelet Count 361 Mean Platelet Volume 9.7 Immature Granulocytes % 0.500 H Neutrophils % 88.6 H Lymphocytes % 9.0 L Monocytes % 1.7 Eosinophils % 0.0 Basophils % 0.2 Nucleated Red Blood Cells % 0.0 Immature Granulocytes # 0.050 H Neutrophils # 9.8 H Lymphocytes # 1.0 Monocytes # 0.2 L Eosinophils # 0.0 Basophils # 0.0 Nucleated Red Blood Cells # 0.0 Sodium Level 140 Potassium Level 4.1 Chloride Level 105 Carbon Dioxide Level 25 Anion Gap 10 Blood Urea Nitrogen 15 Creatinine 0.55 Est Glomerular Filtrat Rate mL/min > 60 Glucose Level 159 Calcium Level 9.4 Lab Scanned Report REFERENCE LAB Medications Medication Current Medications Acetaminophen/ Hydrocodone Bitart ([place] (5/325)) 1 tab Q4H PRN PO .PAIN 1-5 Last administered on 01/21/19at 12:06; Admin Dose 1 TAB; Start 01/20/19 at 18:00 Cefazolin Sodium 50 ml @ 100 mls/hr Q6 IVPB Last administered on 01/21/19at 12:08; Admin Dose 100 MLS/HR; Start 01/20/19 at 18:00; Stop 01/21/19 at 12:29 Al Hydrox/Mg Hydrox/Simethicone (Mag-Al Plus) 15 ml Q4H PRN PO .CONSTIPATION; Start 01/20/19 at 18:00 Acetaminophen (Tylenol Tab) 650 mg Q4H PRN PO TEMP GREATER THAN 101F OR GOMEZ; Start 01/20/19 at 18:00 IV Flush (NS 3 ml) 3 ml PER PROTOCOL IV ; Start 01/20/19 at 18:00 Naloxone HCl (Narcan) 0.2 mg Q2M PRN IV RR 8 BREATHS/MIN OR LESS; Start 01/20/19 at 18:00 Hydromorphone HCl (Dilaudid) 1 mg Q3H PRN IV SEVERE PAIN LEVEL 7-10 Last administered on 01/21/19at 06:33; Admin Dose 1 MG; Start 01/20/19 at 21:30 Ondansetron HCl (Zofran Inj) 4 mg Q4H PRN IV NAUSEA AND/OR VOMITING; Start 01/20/19 at 21:30 Acetaminophen (Tylenol Tab) 650 mg Q4H PRN PO MILD PAIN(1-3)OR ELEVATED TEMP; Start 01/20/19 at 21:30 Dextrose/Sodium Chloride 1,000 ml @ 60 mls/hr [id number] IV Last administered on 01/20/19at 21:53; Admin Dose 60 MLS/HR; Start 01/20/19 at 21:30 Gabapentin (Neurontin) 200 mg BID PO Last administered on 01/21/19at 08:11; Admin Dose 200 MG; Start 01/20/19 at 21:00 RONALD HOLT January 21, 2019 12:24
[2019-01-21] MEDS: DEXTROSE 5%-0.45% NACL 1,000 ML IV SCH (14:10)
[2019-01-21 14:15] VITALS: BP 113/59; PULSE 69; RESP 18
[2019-01-21 19:10] VITALS: BP 111/53; PULSE 72; RESP 18
[2019-01-21] MEDS ORDERED: GABAPENTIN 100 MG CAP PO SCH (21:00)
[2019-01-22 02:29] VITALS: BP 110/58; PULSE 67; RESP 18
[2019-01-22] MEDS: HYDROCODONE/APAP (5/325) TAB PO PRN ×3 (04:04→18:26)
[2019-01-22] MEDS: HYDROmorphONE 1 MG/ML SYG IV PRN ×4 (06:23→20:06)
[2019-01-22 07:20] VITALS: BP 131/60; PULSE 72; RESP 18
[2019-01-22] MEDS: GABAPENTIN 100 MG CAP PO SCH ×2 (08:42→21:26)
--- NOTE | 2019-01-22 13:04 | PN ---
Date/Time of Note Date/Time of Note DATE: 01/22/19 TIME: 13:03 Assessment/Plan VTE Prophylaxis Risk score (from Nsg)>0 risk: 8 SCD applied (from Nsg): Yes Pharmacological prophylaxis: LMWH Lines/Catheters IV Catheter Type (from Nrsg): Saline Lock Urinary Cath still in place: No Assessment/Plan Hospital Course 1. Spinal cord stimulator malfunction, status post removal. 2. Chronic sciatica pain. 3. Anxiety and depression. Result Diagram: 01/21/1942901/21/19429 Subjective 24 Hr Interval Summary Free Text/Dictation Patient still having pain in legs and back. Also complains of constipation Exam/Review of Systems Exam Vitals Vital Signs Date Temp Pulse Resp B/P (MAP) Pulse Ox O2 O2 Flow FiO2 Time Delivery Rate 01/22/19 98.7 72 18 131/60 94 Room Air 07:20 (83) 01/20/19 2.0 19:22 Intake and Output 01/21/19 01/21/19 01/22/19 1515:00 23:00 07:00 IntakeIntake Total 1710 ml 860 ml 780 ml OutputOutput Total 600 ml 550 ml 1350 ml BalanceBalance 1110 ml 310 ml -570 ml Constitutional: well developed Head: normocephalic, atraumatic Neck: supple Respiratory: clear to auscultation Cardiovascular: regular rate and rhythm Gastrointestinal: soft, non-tender Extremities: normal pulses Medications Medication Current Medications Acetaminophen/ Hydrocodone Bitart ([place] (5/325)) 1 tab Q4H PRN PO .PAIN 1-5 Last administered on 01/22/19at 04:04; Admin Dose 1 TAB; Start 01/20/19 at 18:00 Al Hydrox/Mg Hydrox/Simethicone (Mag-Al Plus) 15 ml Q4H PRN PO .CONSTIPATION; Start 01/20/19 at 18:00 Acetaminophen (Tylenol Tab) 650 mg Q4H PRN PO TEMP GREATER THAN 101F OR GOMEZ; Start 01/20/19 at 18:00 IV Flush (NS 3 ml) 3 ml PER PROTOCOL IV ; Start 01/20/19 at 18:00 Naloxone HCl (Narcan) 0.2 mg Q2M PRN IV RR 8 BREATHS/MIN OR LESS; Start 01/20/19 at 18:00 Hydromorphone HCl (Dilaudid) 1 mg Q3H PRN IV SEVERE PAIN LEVEL 7-10 Last administered on 01/22/19at 11:21; Admin Dose 1 MG; Start 01/20/19 at 21:30 Ondansetron HCl (Zofran Inj) 4 mg Q4H PRN IV NAUSEA AND/OR VOMITING; Start 01/20/19 at 21:30 Acetaminophen (Tylenol Tab) 650 mg Q4H PRN PO MILD PAIN(1-3)OR ELEVATED TEMP; Start 01/20/19 at 21:30 Gabapentin (Neurontin) 200 mg BID PO Last administered on 01/22/19at 08:42; Admin Dose 200 MG; Start 01/20/19 at 21:00 RONALD HOLT January 22, 2019 13:04
[2019-01-22 17:23] VITALS: BP 136/74; PULSE 76
[2019-01-22] MEDS: BISACODYL (EC) 5 MG TAB PO PRN (18:26)
[2019-01-22 19:28] VITALS: BP 138/80; PULSE 67; RESP 18
[2019-01-22] MEDS: DOCUSATE SODIUM 100 MG CAP PO SCH (21:26)
[2019-01-23 02:02] VITALS: BP 116/65; PULSE 67; RESP 18
[2019-01-23] MEDS: HYDROmorphONE 1 MG/ML SYG IV PRN ×3 (04:07→18:36)
[2019-01-23 08:07] VITALS: BP 114/74; PULSE 61; RESP 18
[2019-01-23] MEDS: DOCUSATE SODIUM 100 MG CAP PO SCH (09:06)
[2019-01-23] MEDS: GABAPENTIN 100 MG CAP PO SCH (09:06)
[2019-01-23] MEDS: BISACODYL (EC) 5 MG TAB PO PRN (09:07)
[2019-01-23 14:21] VITALS: BP 131/74; PULSE 78; RESP 18
--- NOTE | 2019-01-23 14:38 | PN ---
Date/Time of Note Date/Time of Note DATE: 01/23/19 TIME: 14:35 Assessment/Plan VTE Prophylaxis Risk score (from Ns)>0 risk: 8 SCD applied (from Ns): Yes SCD contraindicated: low risk/ambulating Pharmacological prophylaxis: NA/contraindicated Pharm contraindication: low risk/ambulating Lines/Catheters IV Catheter Type (from Nrsg): Saline Lock Central line still needed: No Urinary Cath still in place: No Assessment/Plan Assessment/Plan Impression Chronic Back pain Pt under pain management s/p Cord Stimulator Removal Plan discussed with patient that we do not need MRI Lspine at this time Her Neurologist order MRI previously and pt already has authorization as outpt dc planning okay from ns point of view follow up with Dr. Malcolm in 2 weeks okay to shower in 2-3 days. Result Diagram: 01/21/19 04301/21/19 043 Subjective 24 Hr Interval Summary Free Text/Dictation Neurosurgery S/P: Cord Stimulator Removal ambulating > 20 -40 ft Exam/Review of Systems Exam Vitals Vital Signs Date Temp Pulse Resp B/P (MAP) Pulse Ox O2 O2 Flow FiO2 Time Delivery Rate 01/23/19 97.4 78 18 131/74 93 Room Air 14:21 (93) 01/20/19 2.0 19:22 Intake and Output 01/22/19 01/22/19 01/23/19 1515:00 23:00 07:00 IntakeIntake Total 240 ml 340 ml 480 ml BalanceBalance 240 ml 340 ml 480 ml Neurological: other (MS: AAOX4 (pt having trouble focusing during discussion due to pain meds) CN: PERRL M: FC x 4 ) Medications Medication Current Medications Acetaminophen/ Hydrocodone Bitart ([place] (5/325)) 1 tab Q4H PRN PO .PAIN 1-5 Last administered on 01/22/19at 18:26; Admin Dose 1 TAB; Start 01/20/19 at 18:00 Al Hydrox/Mg Hydrox/Simethicone (Mag-Al Plus) 15 ml Q4H PRN PO .CONSTIPATION; Start 01/20/19 at 18:00 Acetaminophen (Tylenol Tab) 650 mg Q4H PRN PO TEMP GREATER THAN 101F OR GOMEZ; Start 01/20/19 at 18:00 IV Flush (NS 3 ml) 3 ml PER PROTOCOL IV Last administered on 01/22/19 21:26; Admin Dose 3 ML; Start 01/20/19 at 18:00 Naloxone HCl (Narcan) 0.2 mg Q2M PRN IV RR 8 BREATHS/MIN OR LESS; Start 01/20/19 at 18:00 Hydromorphone HCl (Dilaudid) 1 mg Q3H PRN IV SEVERE PAIN LEVEL 7-10 Last administered on 01/23/19 12:08; Admin Dose 1 MG; Start 01/20/19 at 21:30 Ondansetron HCl (Zofran Inj) 4 mg Q4H PRN IV NAUSEA AND/OR VOMITING; Start 01/20/19 at 21:30 Acetaminophen (Tylenol Tab) 650 mg Q4H PRN PO MILD PAIN(1-3)OR ELEVATED TEMP; Start 01/20/19 at 21:30 Gabapentin (Neurontin) 200 mg BID PO Last administered on 01/23/19 09:06; Admin Dose 200 MG; Start 01/20/19 at 21:00 Docusate Sodium (Colace) 200 mg BID PO Last administered on 01/23/19 09:06; Admin Dose 200 MG; Start 01/22/19 at 21:00 Bisacodyl (Dulcolax) 10 mg DAILY PRN PO CONSTIPATION Last administered on 01/23/19 09:07; Admin Dose 10 MG; Start 01/22/19 at 13:30 PAUL YANG NP January 23, 2019 14:38
--- NOTE | 2019-01-24 14:44 | DS ---
Date/Time of Note Date/Time of Note DATE: 01/24/19 TIME: 14:41 Discharge Summary Admission/Discharge Info Admit Date/Time January 20, 2019 at 12:25 Discharge Date/Time January 23, 2019 at 19:20 Patient Condition: Stable Hx of Present Illness The patient is a 63-year-old female with a history of chronic sciatica pain, history of depression, history of left ureter and left renal stones status post cystoscopy, laser lithotripsy and JJ stent placement several years ago. The patient is also status post spinal cord stimulator and was having pain at the site of spinal cord stimulator. The patient stated that she had a fall. The patient reported that she developed pain at the site of spinal cord stimulator, therefore, decided to go to PMD and subsequently was seen by Dr. Malcolm as an outpatient for removal of spinal cord stimulator. The patient underwent removal of spinal cord stimulator by Dr. Malcolm. Postoperatively, she has significant pain and is being admitted for further evaluation. The patient denied any chest pain or shortness of breath. The patient does appear anxious and did not have any nausea or vomiting, did not have any abdominal pain, did not have any leg edema. No reported diabetes or cardiac disease. No reported recent fever or chills. No focal weakness. Hospital Course - Spinal cord stimulator malfunction, status post removal Dr. Malcolm on 01/19/2019. - Chronic sciatica pain. Continue Mio, follow-up with pain management doctor as an outpatient. - Anxiety and depression. Home Meds Reported Medications Hydrocodone/Acetaminophen (Hydrocodone-Acetamin 10-325 mg) 1 Each Tablet, 1 EACH PO Q6 PRN for PAIN, TAB 01/20/19 Bupropion Hcl* (Wellbutrin XL*) 150 Mg Tab.sr.24h, 150 MG PO DAILY, TAB.SA 01/20/19 Propranolol Hcl* (Propranolol Hcl*) 40 Mg Tablet, 40 MG PO BID, TAB 01/20/19 Discontinued Reported Medications Zolpidem Tartrate* (Ambien*) 5 Mg Tablet, 5 MG PO HS PRN for INSOMNIA, TAB 08/06/15 Lorazepam* (Ativan*) 1 Mg Tablet, 1 MG PO DAILY 10/01/11 Aripiprazole* (Abilify*) 5 Mg Tab, 2.5 MG PO DAILY 10/01/11 Bupropion Hcl* (Wellbutrin*) 100 Mg Tablet, 200 MG PO DAILY 10/01/11 Discontinued Scripts Ibuprofen* (Motrin*) 600 Mg Tab, 600 MG PO Q6H PRN for PAIN AND OR ELEVATED TEMP, #30 TAB Prov:CLAUDIA CARRINGTON NP 05/12/18 Cephalexin* (Keflex*) 500 Mg Capsule, 500 MG PO Q8, #9 CAP Prov:SHELLEY WALLER 04/10/18 Sulfamethoxazole/Trimethoprim* (Bactrim Ds* Tablet) 1 Each Tablet, 1 TAB PO BID for 5 Days, TAB Prov:SHELLEY WALLER DO 04/10/18 Hydrocodone/Acetaminophen ([place] 5-325 Tablet) 1 Each Tablet, 1 EACH PO Q6 PRN for SEVERE PAIN LEVEL 7-10, #7 TAB Prov:SHELLEY WALLER DO 04/10/18 Naproxen* (Naproxen*) 500 Mg Tablet, 500 MG PO BID PRN for PAIN, #20 TAB Prov:SHELLEY WALLER 04/10/18 Tramadol Hcl* (Ultram*) 50 Mg Tablet, 50 MG PO Q6H PRN for PAIN, #10 TAB Prov:ALEXEI ALMONTE MD 03/14/18 Ondansetron Hcl* (Zofran*) 4 Mg Tablet, 4 MG PO Q6H for NAUSEA AND/OR VOMITING, #30 TAB Prov:KARI COYLE 03/11/18 Oxycodone HCl/Acetaminophen (Percocet 5-325 mg Tablet) 1 Each Tablet, 1 EACH PO Q6, #15 TAB Prov:KARI COYLE 03/11/18 Hydrocodone/Acetaminophen ([place] 10-325 Tablet) 1 Each Tablet, 1 TAB PO Q6H PRN for PAIN, #7 TAB Prov:ANÍBAL GARDNER PA-C 01/16/18 Hydrocodone/Acetaminophen ([place] 5-325 Tablet) 1 Each Tablet, 1 TAB PO Q6H PRN for PAIN, #7 TAB Prov:ALEXEI ALMONTE MD 01/08/18 Tamsulosin Hcl* (Flomax*) 0.4 Mg Cap.er.24h, 0.4 MG PO QPM, #10 CAP Prov:ROGELIO RODRIGUEZ MD 09/16/17 Hydrocodone/Acetaminophen ([place] 10-325 Tablet) 1 Each Tablet, 1 TAB PO Q6H PRN for PAIN, #7 TAB Prov:ROGELIO RODRIGUEZ MD 09/16/17 Ibuprofen* (Motrin*) 800 Mg Tab, 800 MG PO Q6H PRN for PAIN AND OR ELEVATED TEMP, #30 TAB Prov:ROGELIO RODRIGUEZ MD 09/16/17 Ibuprofen* (Ibuprofen*) 600 Mg Tablet, 600 MG PO Q8 for PAIN AND/OR INFLAMMATION, #30 TAB Prov:MEGHAN GROVER MD 07/30/16 Follow-up Plan Follow-up with Dr. Malcolm in 2 weeks, follow-up with rn pain management outpatient. Primary Care Provider Care Physician No Primary Time spent on discharge: > 30 minutes DEA DUBON January 24, 2019 14:44
== END 2019-01-23 19:20 | disposition home or self-care (01) | DRG 93 ==
LOC: REC 12:25 → EDSTATUS 15:00 → MS1 20:10
PROVIDERS: ADMIT Neurological Surgery; ATTEND Neurological Surgery
PROC: 0JPT0MZ Removal of Stimulator Generator from Trunk Subcutaneous Tissue and Fascia, Open Approach (ICD-10-PCS; principal; 2019-01-20 15:00)
DX: T85.840A Pain due to nervous system prosthetic devices, implants and grafts, initial encounter (principal); R25.1 Tremor, unspecified; R32 Unspecified urinary incontinence; F32.9 Major depressive disorder, single episode, unspecified; G89.29 Other chronic pain; M54.30 Sciatica, unspecified side; F41.9 Anxiety disorder, unspecified
CPT/HCPCS: 80048; 85025; 86850; 86900; 86901; 88300; 93005; 97116; 97162; 97530; J0690; J1100; J1170; J2175; J2250; J2270; J2405; J2710; J3010; J7042

== ENCOUNTER 2019-02-24 12:35 | Emergency (ER) | payer OTHER ==
[~2019-02-24] VITALS: Ht 152.4 cm; Wt 81.0 kg
[~2019-02-24 12:35] MED LIST changes: -ARIP5TAB14 PO; +BUPR-75 PO; -BUPR100T6 PO; -CEPH-443 PO; +HYDR-3609 PO; -HYDR-3980 PO; -HYDR-4011 PO; -IBUP-1542 PO; -IBUP800T48 PO; -LORA-401 PO; -NAPR-688 PO; -ONDA4TAB8 PO; -OXYC-279 PO; +PROP40TA4 PO; -SULF1TAB31 PO; -TAMS-14 PO; -TRAM50TA PO; -ZOLP5TAB PO
[2019-02-24 12:42] VITALS: BP 137/91; PULSE 61; RESP 18; Ht 152.4 cm; Wt 81.0 kg
[2019-02-24] MEDS ORDERED: KETOROLAC 30 MG INJ IM STA (13:16)
[2019-02-24] MEDS ORDERED: HYDROmorphONE 0.5 MG/0.5 ML SYG IM STA (13:16)
--- NOTE | 2019-02-24 13:53 | ERD ---
ER Documentation Chief Complaint Chief Complaint GENERALIZED PAIN X 4 MONTHS HPI 63-year-old female presents with acute on chronic low back pain rating to the left lower extremity. She has a burning pain. She is a patient of Dr. Malcolm, neurosurgery. She also has pain management. She had an MRI today for pain whi ch is worsening over the last 2 months. She denies any bowel bladder incontinence, anesthesia, weakness, fevers. She has a follow-up for MRI results with her neurosurgeon next week. She is prescribed Percocet monthly by her pain management state that she does not take it as it makes her nauseous, constipated and woozy. She has tried tramadol, codeine, and is currently taking Neurontin as well without relief. She denies any new injury. Her injury was approximately 9 months ago after she was sitting on a bench and it collapsed. She did have a spinal stimulator placed but had it removed due to some complications last month. ROS All systems reviewed and are negative except as per history of present illness. Medications Home Meds Reported Medications Hydrocodone/Acetaminophen (Hydrocodone-Acetamin 10-325 mg) 1 Each Tablet, 1 EACH PO Q6 PRN for PAIN, TAB 01/20/19 Bupropion Hcl* (Wellbutrin XL*) 150 Mg Tab.sr.24h, 150 MG PO DAILY, TAB.SA 01/20/19 Propranolol Hcl* (Propranolol Hcl*) 40 Mg Tablet, 40 MG PO BID, TAB 01/20/19 Allergies Allergies: Coded Allergies: No Known Allergy (Unverified , 01/20/19) PMhx/Soc History of Surgery: Yes (appendectomy; cholecystectomy; sciatica; ruptured disc. ) Anesthesia Reaction: No Hx Neurological Disorder: Yes (depression; hand tremors) Hx Respiratory Disorders: No Hx Cardiac Disorders: No Hx Psychiatric Problems: No Hx Miscellaneous Medical Probl: Yes (See note) Hx Alcohol Use: No Hx Substance Use: No Hx Tobacco Use: No Smoking Status: Never smoker FmHx Family History: No diabetes, No coronary disease, No other Physical Exam Vitals Vital Signs Date Temp Pulse Resp B/P (MAP) Pulse Ox O2 O2 Flow FiO2 Time Delivery Rate 02/24/19 98.1 61 18 137/91 99 12:42 (106) Physical Exam Const: No acute distress Head: Atraumatic Eyes: Normal Conjunctiva ENT: Normal External Ears, Nose and Mouth. Neck: Full range of motion. No meningismus. Resp: Clear to auscultation bilaterally Cardio: Regular rate and rhythm, no murmurs Abd: Soft, non tender, non distended. Normal bowel sounds Skin: No petechiae or rashes Back: No midline or flank tenderness. Tenderness left L4-5 area. Positive straight leg raise. No bony tenderness or deformities. No warmth, erythema of any surgical sites appreciated. Ext: No cyanosis, or edema Neur: Awake and alert Psych: Normal Mood and Affect Results 24 hrs Current Medications Medications Dose Sig/Jackie Start Time Status Last (Trade) Ordered Route PRN Stop Time Admin Dose Reason Admin Ketorolac 30 mg ONCE STAT 02/24/19 DC 02/24/19 Tromethamine IM 13:16 02/24/19 13:25 (Toradol) 13:17 1 mg ONCE STAT 02/24/19 DC 02/24/19 Hydromorphone IM 13:16 02/24/19 13:25 HCl 13:17 (Dilaudid) Procedures/MDM Patient presents with acute on chronic signs of sciatica without signs or symptoms suggest epidural abscess, cauda equina syndrome, new injury. Patient counseled her case is difficult as she currently has satisfactorily neurosurgery as well as pain management follow-up. She declines physical therapy and admission. Will treat with 1 dose Dilaudid, and Toradol as she may be having acute pain from the MRI position. She will be discharged with with continuation of Percocet at home and neurosurgery and primary care and pain management follow-up. No new prescriptions given. Cures review shows monthly prescriptions by her pain management doctor without an obvious excess of prov iders or facilities. The patient was stable with no new complaints during the ER course. Clinically, there is no current evidence to suggest meningitis, sepsis, acute abdomen, pneumonia, stroke, acute coronary syndrome, pulmonary embolism, aortic dissection or any other emergent condition appearing to require further evaluation or hospitalization. Patient counseled regarding my diagnostic impression and care plan. Prior to discharge all questions answered. Pt agrees with treatment plan and understands strict return precautions. Pt is instructed to follow up with primary care provider within 24-48 hours. Precautionary instructions provided including instructions to return to the ER if not improving or for any worsening or changing symptoms or concerns. Disclaimer: Inadvertent spelling and grammatical errors are likely due to EHR/dictation software use and do not reflect on the overall quality of patient care. Also, please note that the electronic time recorded on this note does not necessarily reflect the actual time of the patient encounter. Departure Diagnosis: Primary Impression: Sciatica of left side Condition: Stable Patient Instructions: Back Pain W/ Sciatica Referrals: SHEILA MALCOLM MD Additional Instructions: Continue current medications as prescribed. See Dr. Malcolm for follow-up for MRI results. Recheck for fevers, new worsening symptoms. PRATIMA ALVARADO MD Feb 24, 2019 13:53
== END 2019-02-24 14:21 | disposition left against medical advice (07) ==
LOC: FTE 12:35
DX: M54.42 Lumbago with sciatica, left side (principal)
CPT/HCPCS: 96372; 99284; J1170; J1885

== ENCOUNTER 2019-05-07 15:48 | Emergency (ER) | payer OTHER ==
[~2019-05-07] VITALS: Ht 152.4 cm; Wt 67.0 kg
[~2019-05-07 15:48] MED LIST changes: +BUPR150T11 ORAL; +CELE-54 ORAL; +GABA-528 ORAL; +HYDR-3980 PO; +IBUP-1542 PO; +OXYC-431 ORAL; +TAMS-14 PO
[2019-05-07 16:09] VITALS: Ht 152.4 cm; Wt 67.0 kg
[2019-05-07] MEDS ORDERED: HYDROCODONE/APAP (10/325) TAB PO ONE (17:00)
== END 2019-05-07 19:07 | disposition home or self-care (01) ==
LOC: FTE 15:48
DX: S83.91XA Sprain of unspecified site of right knee, initial encounter (principal); W01.0XXA Fall on same level from slipping, tripping and stumbling without subsequent striking against object, initial encounter; Y92.9 Unspecified place or not applicable
CPT/HCPCS: 73562

== ENCOUNTER 2019-05-19 10:47 | Emergency (ER) | payer OTHER ==
[~2019-05-19] VITALS: Ht 152.4 cm; Wt 66.0 kg
[2019-05-19 11:03] VITALS: PULSE 57; Ht 152.4 cm; Wt 66.0 kg
[2019-05-19] MEDS ORDERED: HYDROmorphONE 1 MG/ML SYG IV STA (12:51)
[2019-05-19] MEDS ORDERED: ONDANSETRON 4 MG INJ IV STA (12:51)
[2019-05-19] MEDS ORDERED: SOD CHLORIDE 0.9% 1,000 ML IV STA (12:51)
[2019-05-19 14:54] VITALS: BP 112/57; RESP 18
== END 2019-05-19 14:54 | disposition home or self-care (01) ==
LOC: E/R 10:47
DX: N20.0 Calculus of kidney (principal); R40.2142 Coma scale, eyes open, spontaneous, at arrival to emergency department; R40.2252 Coma scale, best verbal response, oriented, at arrival to emergency department; R40.2362 Coma scale, best motor response, obeys commands, at arrival to emergency department
CPT/HCPCS: 74176; 80048; 81001; 85025; 96374; 96375; 99285; J1170; J2405; J7030